=== PATIENT | female | born 1985 | race Two or more races ===

== ENCOUNTER 2017-07-20 17:37 | Observation (INO) | payer BC ==
[2017-07-20] MEDS ORDERED: MAG HYDROX/AL HYDROX/SIMETH 30 ML UDCUP PO ONE (18:16)
[2017-07-20] MEDS ORDERED: LIDOCAINE 2% VISCOUS 15 ML UDCUP PO ONE (18:16)
[2017-07-20] MEDS ORDERED: HYOSCYAMINE SULFATE 0.125 MG TAB PO ONE (18:16)
--- NOTE | 2017-07-20 18:21 | SOAPPROG ---
SOAP Progress Note Assessment/Plan: Assessment: 31 yo at 31w6d called office with upper GI pain, advised to come into triage for PIH eval. Upper epigastric pain, burning in the esophagus. Gave GI cocktail and PO fluids. BP low-normal. No other s/sx of PIH. Labs not drawn. FHR Category I, irregular ctx's that the patient is not feeling. 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 COLETTE 07/20/17 18:20 ICD10 Worksheet Patient Problems: Problems Problem Status Onset Acid reflux Acute - ICD10 Problem Qualifiers (1) Acid reflux Qualifiers: Esophagitis presence: esophagitis presence not specified Qualified Code(s) : K21.9 - Gastro-esophageal reflux disease without esophagitis
== END 2017-07-20 19:03 | disposition home or self-care (01) ==
LOC: FLD 17:37
PROVIDERS: ADMIT Obstetrics & Gynecology; ATTEND Obstetrics & Gynecology
DX: O13.3 Gestational [pregnancy-induced] hypertension without significant proteinuria, third trimester (principal); O99.613 Diseases of the digestive system complicating pregnancy, third trimester; K21.9 Gastro-esophageal reflux disease without esophagitis; R10.13 Epigastric pain; Z3A.31 31 weeks gestation of pregnancy

== ENCOUNTER 2017-09-11 05:49 | Inpatient (IN) | payer BC ==
--- NOTE | 2017-09-03 13:41 | PDGENHP ---
History and Physical - Chief Complaint here for repeat C/s - History of Present Illness 31 at 39w3d by LMP c/w 8 wk USwho desires an elective repeat C/S. Uncomplicated course - transfer of care from [facility] at 27 weeks. First C/S done in [place] prior to moving to [facility]. Good FM, no VB , no LOF, no SSX PIH. labs: GBS neg, O pos Rubella Immune. All other - within normal limits. PMH: none PSH: 2/ LTCS, 8#3oz Soc: , one daughter, -/-/- Medications: PNV, ca++, iron All: NKDA Gen: VSS afeb CV - RRR chest - CTAB abd - gravid, soft, NT ext - no edema, no calf tenderness 09/11/17 06:15 Patient ABO/Rh O POSITIVE 09/11/17 06:15 Im: 31 at 39w3d, desires repeat C/S Written informed consent from the office was reviewed. Will proceed with LTCS shortly. Jennifer Ybarra MD, FACOG [facility] History Information - Allergies/Home Medication List Allergies/Adverse Reactions: No Known Allergies Allergy (Unverified 07/20/17 18:16) Home Medications: Calcium Carbonate [Calcium] 1 tab PO DAILY 09/11/17 [Last Taken 09/10/17] Iron 1 tab PO DAILY 09/11/17 [Last Taken 09/10/17] 1 tab PO DAILY 09/11/17 [Last Taken 09/10/17] I have personally reviewed and updated: family history, medical history, social history, surgical history Review of Systems Review of Systems: ROS: 10pt was reviewed & negative except for what was stated in HPI & below Physical Exam Physical Exam: Lab Data & Imaging Review 09/11/17 06:15
[2017-09-11] MEDS ORDERED: LR 500 ML IV ONE (05:58)
[2017-09-11] MEDS ORDERED: LR 1,000 ML IV SCH (05:58)
[2017-09-11] MEDS ORDERED: CITRIC ACID/SODIUM CITRATE 30 ML UDCUP PO ONE (05:58)
[2017-09-11] MEDS ORDERED: ceFAZolin 2 GM/DEXTROSE 100 ML IV ONE (05:58)
[2017-09-11 06:27] LABS: PLATELET COUNT 218 10^3/uL (150-400)
--- NOTE | 2017-09-11 07:17 | PREANESOB ---
Obstetric Pre-Anesthesia Info - General Info : 2 Para: 1 TRACY: 09/15/17 Gestational Age: 39 week(s) and 3 day(s) - Info Status: Full Term Monitors: External FHR Baseline (bpm): 140 FHR Pattern: Reassuring - Labor Status Section History: Repeat Indications for Current Section: Elective/Repeat Labor Epidural: No Anesthesia ROS: Prior labor and C Section with epidural. Allergies/Adverse Reactions: Allergy/AdvReac Type Severity Reaction Status Date / Time No Known Allergies Allergy Unverified 07/20/17 18:16 Home Medications: Medication Instructions Recorded Calcium Carbonate [Calcium] 1 tab PO DAILY 09/11/17 Iron 1 tab PO DAILY 09/11/17 1 tab PO DAILY 09/11/17 Visit Medications: Generic Name Dose Route Start Last Admin Trade Name Freq PRN Reason Stop Dose Admin Lactated Ringer's 1,000 mls @ 125 mls/hr 09/11/17 05:58 Lr IV 09/12/17 05:57 CONT ALYSSA Discontinued Medications Generic Name Dose Route Start Last Admin Trade Name Freq PRN Reason Stop Dose Admin Citric Acid/Sodium Citrate 30 ml 09/11/17 05:58 Bicitra PO 09/11/17 05:59 ONCALL ONE Cefazolin Sodium/Dextrose 100 mls @ 200 mls/hr 09/11/17 05:58 Ancef 2 Gm IV 09/11/17 06:27 ONCALL ONE Protocol Lactated Ringer's 500 mls @ 0 mls/hr 09/11/17 05:58 Lr IV 09/11/17 05:59 ONCE ONE As Directed - Anesthesia History Response to Local Anesthetics: Normal Anesthesia & Operative History: No Prior Problems Family Anesthesia History: Negative - Social History Substance Use/Abuse: Denies - Vital Signs Latest Vital Signs (Nursing): Temp Pulse Resp BP Pulse Ox 36.4 C 75 20 110/64 96 09/11/17 06:17 09/11/17 06:17 09/11/17 06:17 09/11/17 06:17 09/11/17 06:17 Blood Pressure: 110/64 Heart Rate: 75 Respiratory Rate: 20 Height/Weight (Nursing): Height 169 cm Weight 80 kg - Focused Exam Neck exam: FROM Mallampati Score: Class 1 Mouth exam: normal dental/mouth exam Pulmonary: no respiratory distress Cardiovascular: regular rate and rhythym Labs: 09/11/17 06:15 Patient ABO/Rh O POSITIVE 09/11/17 06:15 - Plan Anesthetic Plan: SAB Consent Signed and on Chart: Yes Patient/Guardian Understands and Agrees to Plan: Yes
[2017-09-11] MEDS ORDERED: morphINE PF 5 MG/10 ML INJ ONE (07:35)
[2017-09-11] MEDS ORDERED: fentaNYL 100 MCG/2 ML INJ ONE (07:35)
[2017-09-11] MEDS ORDERED: ONDANSETRON 4 MG/2 ML VIAL ONE ×2 (08:11)
[2017-09-11] MEDS ORDERED: DEXAMETHASONE 4 MG/ML VIAL ONE ×2 (08:11)
[2017-09-11] MEDS ORDERED: PHENYLEPHRINE HCL 100 MCG/ML SYR ONE (08:11)
[2017-09-11] MEDS ORDERED: OXYTOCIN 100 UNITS/10 ML VIAL ONE (08:11)
[2017-09-11] MEDS ORDERED: PROMETHAZINE HCL 25 MG/ML INJ IVP PRN (09:00)
[2017-09-11] MEDS ORDERED: OXYTOCIN/RINGERS LACTATE 1,000 ML IV SCH (09:00)
[2017-09-11] MEDS ORDERED: SIMETHICONE 80 MG TAB CHEW PO PRN (09:00)
[2017-09-11] MEDS ORDERED: oxyCODONE IR 5 MG TAB PO PRN (09:05)
--- NOTE | 2017-09-11 09:13 | POSTOPPROG ---
Post Op Note Date of Operation: 09/11/17 Surgeon: Jennifer Ybarra Upholstery Cleaner: BRET Escoto Anesthesiologist: Francisco Bright MD Anesthesia: Spinal Pre-op Diagnosis: elective repeat section Post-op Diagnosis: same Indication: elective repeat Procedure: repeat low transverse section Findings: Normal appearing uterus, tubes and ovaries, delivery of male infant Inf/Abcess present in the surg proc area at time of surgery?: No EBL: 500-1000 Total fluids administered: 3100 ml Complications: none
[2017-09-11] MEDS ORDERED: PHENYLEPHRINE HCL 100 MCG/ML SYR IVP PRN (09:53)
[2017-09-11] MEDS ORDERED: NALOXONE HCL 0.4 MG/ML INJ IVP PRN (09:53)
[2017-09-11] MEDS ORDERED: ONDANSETRON 4 MG/2 ML VIAL IVP PRN (09:53)
--- NOTE | 2017-09-11 09:56 | POSTANESTH ---
Post Anesthetic Evaluation Cardiovascular Status: Normal, Stable, Similar to Pre-Op Cond Respiratory Status: Normal, Stable, Similar to Pre-op Cond. Level of Consciousness/Mental Status: Can Participate in Eval, Alert and Oriented Pain Control: Adequate, Prn Tx Ordered Nausea/Vomiting Control: Adequate, Prn Tx Ordered Complications Possibly Related to Anesthesia: None Noted
--- NOTE | 2017-09-11 10:34 | GOP ---
[f rep st] OPERATIVE REPORT DATE OF OPERATION: 09/11/2017 SURGEON: Jennifer Ybarra MD FILM DRYING MACHINE OPERATOR: assistant chief engineer: BRET Escoto, needed for adequate retraction and exposure. Second material assistant: Elo Amador CNM. ANESTHESIA: Spinal. ANESTHESIOLOGIST: Raul Bright MD PREOPERATIVE DIAGNOSIS: Elective repeat section. POSTOPERATIVE DIAGNOSIS: Elective repeat section. PROCEDURE PERFORMED: Repeat low transverse section. FINDINGS: Normal appearing uterus, tubes and ovaries. Delivery of male infant , Apgars 8 and 9. IV FLUIDS: 1300 ml URINE OUTPUT: 100 ml ESTIMATED BLOOD LOSS: 800 cc. INDICATIONS: A 31-year-old 2, para 1 female at 39 weeks and 3 days with a history of a prior section. She desired an elective repeat section. Her course was uncomplicated. Written informed consent had been obtained in the office and it was reviewed prior to the procedure. DESCRIPTION OF PROCEDURE: She was taken to the operating room and placed in the dorsal supine position. heart tones were obtained. A urinary catheter was placed under standard conditions. She was prepared and draped in a standard fashion. 2 grams of Ancef had been given. A time-out was performed. A skin incision was made over the previous skin incision and taken down sharply to the fascia. The fascia was incised in the midline and extended laterally in a sharp fashion. The upper aspect of the facia was elevated and the rectus muscles were dissected away sharply and bluntly. This was repeated on the lower aspect of the incision. The rectus muscles were in the midline. The peritoneum was grasped, elevated, and entered sharply. The opening was extended in a blunt fashion. A bladder blade was inserted, along with a retractor. A bladder flap was created sharply. The bladder blade was placed over the bladder flap. The hysterotomy was made sharply and extended in a blunt and sharp fashion. Release of clear amniotic fluid was noted. The vertex was able to be elevated to the hysterotomy. With the assistance of fundal pressure, vertex was delivered without incident. mouth and nose were bulb suctioned. The remainder of the fetus delivered without difficulty with fundal pressure. One minute delayed cord clamping was performed. The cord was then cut and clamped, and the was handed to the awaiting nurse practitioner. The uterus was then cleared of all clots and debris. The hysterotomy was repaired with 0 Vicryl in a running locked fashion. A second imbricating layer was placed. The gutters were cleared of all clot and debris. The uterus was replaced into the abdomen. Excellent hemostasis was noted with the addition of cautery. The fascia was then closed with 0 PDS in a running fashion, 2 sutures were used and they were tied in the midline. Jessica's fascia was then closed with 3-0 Monocryl in a running fashion. The skin was closed with 4-0 Monocryl in a running subcuticular fashion and covered with Steri-Strips. Sponge, lap, and needle counts were correct x2. The patient was taken to the recovery room in stable condition. /[id number]/MODL MTDD
[2017-09-11] MEDS: KETOROLAC 30 MG/1 ML SDV IVP SCH ×2 (11:48→18:23)
[2017-09-11] MEDS: ACETAMINOPHEN 325 MG TAB PO SCH ×2 (14:09→18:24)
[2017-09-11] MEDS: IBUPROFEN 600 MG TAB PO SCH ×2 (14:10→19:47)
[2017-09-12] MEDS: ACETAMINOPHEN 325 MG TAB PO SCH ×4 (00:08→17:56)
[2017-09-12] MEDS: KETOROLAC 30 MG/1 ML SDV IVP SCH ×2 (00:08→06:03)
[2017-09-12] MEDS: IBUPROFEN 600 MG TAB PO SCH ×4 (02:32→17:57)
--- NOTE | 2017-09-12 10:45 | OBPP ---
Progress Note Assessment/Plan: Assessment: POD 1 s/p RCS Plan: routine care 09/12/17 10:41 Subjective/ Course: 09/12/17 10:41 Pt doing well. States pain in good control. Using IV pain meds so far. Bld has been light. hasn't urinated yet - post out this am. Not amb much yet. Baby has latched well but didn't for hours last noc due to somnolence. Kayleigh reg diet this am 09/12/17 10:46 Objective: 09/11/17 09:00 Patient ABO/Rh O POSITIVE 09/11/17 06:15 Temp Pulse Resp BP Pulse Ox 36.7 C 78 14 87/56 L 95 09/12/17 08:00 09/12/17 08:00 09/12/17 08:00 09/12/17 08:00 09/12/17 08:00 Uterine Position/Fundal Height: Umbilicus -1 Uterine Tone: Firm Physical Exam - Physical Exam Abdomen: non-tender (approp post op tenderness), soft, other (incision with small areas of old stain, o/w looks good) Extremities: non-tender, pedal edema (mild) Skin: normal color, warm/dry Neuro/Psych: alert, normal mood/affect
[2017-09-12] MEDS: HYDROCODONE/APAP 5/325 TAB PO PRN (22:56)
[2017-09-13] MEDS: IBUPROFEN 600 MG TAB PO SCH ×5 (00:12→23:49)
[2017-09-13] MEDS: DOCUSATE SODIUM 100 MG CAP PO PRN ×2 (08:11→17:58)
[2017-09-13] MEDS: HYDROCODONE/APAP 5/325 TAB PO PRN ×2 (13:33→17:58)
--- NOTE | 2017-09-13 22:47 | OBPP ---
Progress Note Assessment/Plan: Assessment: pod# 2 s/p RLTCS breast feeding Plan: routine post care 09/13/17 22:43 Subjective/ Course: 09/12/17 10:41 Pt doing well. States pain in good control. Using IV pain meds so far. Bld has been light. hasn't urinated yet - post out this am. Not amb much yet. Baby has latched well but didn't for hours last noc due to somnolence. Kayleigh reg diet this am 09/12/17 10:46 09/13/17 22:47 patient is doing well. pain is well controlled. normal lochia. denies headache and changes in vision. breast feeding is going well. Objective: 09/11/17 09:00 Patient ABO/Rh O POSITIVE 09/11/17 06:15 Temp Pulse Resp BP Pulse Ox 37.1 C 81 20 106/64 95 09/13/17 20:01 09/13/17 20:01 09/13/17 20:01 09/13/17 20:01 09/13/17 20:01 Physical Exam - Physical Exam Neck: non-tender, full range of motion, supple Respiratory: chest non-tender, lungs clear, normal breath sounds Cardiac/Chest: normal peripheral pulses, regular rate, rhythm Abdomen: normal bowel sounds, non-tender, other (fundus firm and non tender) Extremities: normal range of motion, non-tender, normal inspection, normal capillary refill Skin: normal color, warm/dry Neuro/Psych: no motor/sensory deficits, alert, normal mood/affect, oriented x 3
[2017-09-14] MEDS: IBUPROFEN 600 MG TAB PO SCH ×2 (05:13→11:01)
[2017-09-14 08:51] VITALS: BP 115/57
--- NOTE | 2017-09-14 09:26 | OBPP ---
Progress Note Assessment/Plan: Assessment: 31 y/o POD #3 s/p Rpt LTCS doing well. Plan: D/c home today with Rx [place] and Ibuprofen. Follow-up @ [facility] 2, 4 and 6 weeks. 09/14/17 09:25 Subjective/ Course: 09/12/17 10:41 Pt doing well. States pain in good control. Using IV pain meds so far. Bld has been light. hasn't urinated yet - post out this am. Not amb much yet. Baby has latched well but didn't for hours last noc due to somnolence. Kayleigh reg diet this am 09/12/17 10:46 09/13/17 22:47 patient is doing well. pain is well controlled. normal lochia. denies headache and changes in vision. breast feeding is going well. 09/14/17 09:23 Pt is doing well this am. She has good pain control on Po Ibuprofen and [place]. She is ambulating and voiding without difficulty and had a nml BM this am. Breast feeding is going well and her milk is coming in. She says her biggest issue today is back pain in her lower back. They are ready to d/c home. Objective: 09/11/17 09:00 Patient ABO/Rh O POSITIVE 09/11/17 06:15 Temp Pulse Resp BP Pulse Ox 36.9 C 81 16 115/57 L 98 09/14/17 08:00 09/14/17 08:00 09/14/17 08:00 09/14/17 08:00 09/14/17 08:00 Uterine Position/Fundal Height: Umbilicus -2 Uterine Tone: Firm Physical Exam - Physical Exam General Appearance: alert, no apparent distress Neck: non-tender, full range of motion, supple Respiratory: chest non-tender, lungs clear, normal breath sounds Cardiac/Chest: regular rate, rhythm Abdomen: normal bowel sounds, incision (c/d/i) Extremities: swelling (tr), Sabrina's sign (neg)
--- NOTE | 2017-09-14 09:29 | OBGCSDC ---
General Delivery Information - General Info : 2 Para: 2 Abortions: 0 Type: Repeat L&D Analgesia/Anesthesia Type: Spinal Admission Date: 09/11/17 Labs: Patient ABO/Rh O POSITIVE 09/11/17 06:15 Hct 37.5 % (38.0-47.0) L 09/11/17 09:00 - Hospital Course Antepartum: 09/14/17 09:29 Transfer of PNC @ 27 weeks from [facility] H/o LTCS seconary to intolerance to labor with G1 Elective repeat c section : 09/12/17 10:41 Pt doing well. States pain in good control. Using IV pain meds so far. Bld has been light. hasn't urinated yet - post out this am. Not amb much yet. Baby has latched well but didn't for hours last noc due to somnolence. Kayleigh reg diet this am 09/12/17 10:46 09/13/17 22:47 patient is doing well. pain is well controlled. normal lochia. denies headache and changes in vision. breast feeding is going well. 09/14/17 09:23 Pt is doing well this am. She has good pain control on Po Ibuprofen and [place]. She is ambulating and voiding without difficulty and had a nml BM this am. Breast feeding is going well and her milk is coming in. She says her biggest issue today is back pain in her lower back. They are ready to d/c home. - Delivery Providers Surgeon: Jennifer Ybarra - Delivery Number of Prior Sections: 1 Indications for Current Section: Elective/Repeat Surgical Procedures: Scheduled Intra-op Complications: None [place] Data TRACY: 09/15/17 Gestational Age: 39 week(s) and 6 day(s) M[place] Delivery Date: 09/11/17 Delivery Time: 08:23 Sex of Infant: Male Weight (gm): 3734 g Score (1 Min): 8 Score (5 Min): 9 Discharge Information - Discharge Information Prescriptions: Hydrocodone/APAP 5/325 [[place] 5/325 (*)] 1 - 2 tab PO Q4HRS PRN #30 tab PRN Reason: Pain, Moderate Able To Take Po Ibuprofen [Motrin (*)] 600 mg PO Q6HRS #30 tab Instruction/Follow Up: Two Weeks, Four Weeks, Six Weeks
--- NOTE | 2017-09-14 09:53 | OBDEL ---
Info Type: Repeat Presentation at Delivery: Vertex L&D Analgesia/Anesthesia Type: Spinal GBS+: No Intrapartum Medications: Generic Name Dose Route Start Last Admin Trade Name Bandar PRN Reason Stop Dose Admin Hydrocodone Bitart/Acetaminophen 1 - 2 tab 09/12/17 22:51 09/13/17 17:58 [place] 5/325 PO 09/22/17 22:50 1 tab Q4HRS PRN Administration Pain, Moderate Able to Take PO Docusate Sodium 100 mg 09/11/17 09:00 09/13/17 17:58 [place]ace PO 03/10/18 08:59 100 mg BID PRN Administration Constipation Ibuprofen 600 mg 09/11/17 12:00 09/14/17 05:13 Motrin PO 03/10/18 11:59 600 mg Q6HRS ALYSSA Administration Promethazine HCl 25 mg 09/11/17 09:00 09/11/17 15:25 Phenergan IVP 03/10/18 08:59 25 mg Q6HRS PRN Administration Nausea/Vomiting, Use 1st Discontinued Medications Generic Name Dose Route Start Last Admin Trade Name Bandar PRN Reason Stop Dose Admin Acetaminophen 650 mg 09/11/17 12:00 09/12/17 17:56 Tylenol PO 03/10/18 11:59 650 mg Q6HRS ALYSSA Administration Citric Acid/Sodium Citrate 30 ml 09/11/17 05:58 09/11/17 14:10 Bicitra PO 09/11/17 05:59 Not Given ONCALL ONE Cefazolin Sodium/Dextrose 100 mls @ 200 mls/hr 09/11/17 05:58 09/11/17 07:36 Ancef 2 Gm IV 09/11/17 06:27 100 mls ONCALL ONE Administration Protocol Lactated Ringer's 500 mls @ 0 mls/hr 09/11/17 05:58 09/11/17 14:11 Lr IV 09/11/17 05:59 Not Given ONCE ONE As Directed Ketorolac Tromethamine 30 mg 09/11/17 12:00 09/12/17 06:03 Toradol IVP 09/12/17 06:01 30 mg Q6HRS ALYSSA Administration Oxycodone HCl 0 mg 09/11/17 09:05 09/12/17 14:59 Oxycodone Ir PO 09/21/17 09:04 5 mg Q4HRS PRN Administration Pain, Severe Able to Take PO Indications for Delivery: Elective Vaginal Delivery - Labor and Delivery Rupture of Membranes Date: 09/11/17 Rupture of Membranes Time: 08:23 Placenta Delivery Date: 09/11/17 Placenta Delivery Time: 08:25 Operative Report - Delivery Pre-op Diagnoses: IUP @ 39 3/7 weeks, h/o c section desires repeat Post-op Diagnoses: same History of Prior Section: Yes Number of Prior Sections: 1 Nulliparous Prior to Delivery: No Indications for Prior Section: Non-reas. Status Indications for Current Section: Elective/Repeat Procedure: Scheduled Surgeon: Jennifer Ybarra Cuff Presser: Leandra Enriquez Anesthesiologist: Raul Bright Complications: None IV Fluid (ml): 1,400 EBL: 800 Data TRACY: 09/15/17 Gestational Age: 39 week(s) and 6 day(s) Mims Delivery Date: 09/11/17 Delivery Time: 08:23 Sex of : Male [place] Weight (gm): 3734 g Score (1 Min): 8 Score (5 Min): 9 ICD10 Worksheet Patient Problems: Problems Problem Status Onset S/P repeat low transverse Acute Acid reflux Acute
[2017-09-14] MEDS: HYDROCODONE/APAP 5/325 TAB PO PRN (14:12)
== END 2017-09-14 15:20 | disposition home or self-care (01) | DRG 766 ==
LOC: FLD 05:49 → FOB 12:51
PROVIDERS: ADMIT Hospitalist; ATTEND Hospitalist
PROC: 10D00Z1 Extraction of Products of Conception, Low, Open Approach (ICD-10-PCS; principal; 2017-09-11)
DX: O34.219 Maternal care for unspecified type scar from previous cesarean delivery (principal); Z3A.39 39 weeks gestation of pregnancy; Z37.0 Single live birth
CPT/HCPCS: J0690; J1100; J1885; J2274; J2370; J2405; J2550; J2590; J3010